=== PATIENT | male | born 1975 | race Caucasian/White ===

== ENCOUNTER 2018-05-30 07:53 | Day surgery (SDC) | payer BC ==
[2018-05-28 14:18] VITALS: BMI 53.8
[~2018-05-30 07:53] MED LIST: DEXAMETHASONE SOD PHOSPHATE 10 MG/ML 1 ML VIAL IV ONE; DEXAMETHASONE SOD PHOSPHATE 4 MG/ML 1 ML VIAL IV ONE; FAMOTIDINE 20 MG/2 ML VIAL IV ONE; HYDROmorphone 0.5 MG/0.5 ML SYRINGE IVP PRN; LACTATED RINGERS 1,000 ML IV SCH; LIDOCAINE 1% 20 ML VIAL (10MG/ML) FOR IV START INTRADERMA PRN; MIDAZOLAM 2 MG/2 ML VIAL IV PRN; ONDANSETRON 4 MG/2 ML VIAL IVP ONE; SCOPOLAMINE 1.5MG/72HR PATCH TRANSDERM ONE; fentaNYL (PF) 50 MCG/ML 2 ML AMP IV PRN
[2018-05-30] MEDS: OXYMETAZOLINE 0.05% NASL SPRAY 1 SPRAY BOTTLE NASAL ONE ×5 (09:00→09:23)
[2018-05-30 09:06] VITALS: TEMP 97.6
[2018-05-30 09:12] LABS: Glucose,Whole Blood 101 mg/dL (75-99)
[2018-05-30] MEDS ORDERED: BUPIVACAIN-EPI 0.5%-1:200,000 30 ML VIAL SQ ONE (10:29)
[2018-05-30] MEDS ORDERED: EPINEPHrine 1 MG/ML (MDV) 30 ML VIAL TOPICAL ONE (10:29)
[2018-05-30] MEDS ORDERED: LIDOCAINE 1%-EPI 1:100,000 20 ML VIAL SQ ONE (10:29)
[2018-05-30] MEDS ORDERED: FLUORESCEIN STRIPS 1 MG STRIP MISCELLANE ONE (10:29)
--- NOTE | 2018-05-30 11:08 | P.OP ---
Date of Procedure: 05/30/18 Preoperative Diagnosis: Chronic sinusitis Postoperative Diagnosis: Same Procedure(s) Performed: Bilateral functional endoscopic sinus surgery with supra-and infraturbinal maxillary antrostomies with placement of propel and contour Anesthesia: DIOGO Surgeon: Attila Obregon Estimated Blood Loss (ml): 5 Pathology: other (Sinonasal) Condition: stable Disposition: PACU Indications for Procedure: Patient has had problems with chronic maxillary sinusitis. Wider supraturbinal and infraturbinal maxillary antrostomies were recommended. All risks, benefits, and alternative therapies were discussed. Consent was obtained and all questions were answered. Operative Findings: Patient had maxillary sinus disease noted. 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 Description of Procedure: This patient was taken to the operative room and placed in the supine position. A general inhalation anesthetic was administered the patient by mask and subsequently intubated with a cuffed endotracheal tube by the department of anesthesia with a functioning IV line in place. The patient was monitored throughout the entire case by the department of anesthesia. The nose was topically decongested and then injected with lidocaine 1% with epinephrine 1 100,000 along the lateral nasal wall and a sphenopalatine nerve block was performed. We then entered the maxillary sinuses supraturbinal he we widened and open this area we remove synechiae and we will went into the maxillary sinus and removed diseased tissue. We then did an infraturbinal maxillary antrostomy with a Leah and microdebrider and we inserted contour infraturbinally we inserted propel supraturbinally and the patient tolerated this well. Follow-up will be in the office in one week the patient is to contact me if any problems should arise. No packing was placed.
[2018-05-30] MEDS ORDERED: hydrALAZINE HCL 20 MG/ML 1 ML VIAL IV ONE (11:09)
[2018-05-30] MEDS ORDERED: LACTATED RINGERS 1,000 ML IV ONE (11:39)
[2018-05-30 11:52] VITALS: PULSE 83; RESP 16
[2018-05-30 12:10] VITALS: BP 116/57
== END 2018-05-30 12:36 | disposition home or self-care (01) ==
LOC: OR 07:53
PROVIDERS: ATTEND Otolaryngology
DX: J32.0 Chronic maxillary sinusitis (principal); J45.909 Unspecified asthma, uncomplicated; G47.33 Obstructive sleep apnea (adult) (pediatric); Z99.89 Dependence on other enabling machines and devices; E66.01 Morbid (severe) obesity due to excess calories; Z68.43 Body mass index [BMI] 50.0-59.9, adult; Z83.6 Family history of other diseases of the respiratory system; Z79.51 Long term (current) use of inhaled steroids; Z79.52 Long term (current) use of systemic steroids; Z79.899 Other long term (current) drug therapy
CPT/HCPCS: 88305; 31267; 31299; C2625 ×2; J0171; J0360; J1100; J2405; J0690